=== PATIENT | male | born 1965 | race Caucasian/White ===

== ENCOUNTER 2021-05-20 11:48 | Outpatient (CLI) | payer OTHER, SELFPAY ==
--- NOTE | 2021-05-20 11:55 | CT_ITS ---
WS: [id number] CT CHEST ANGIOGRAPHY WITH REFORMATS HISTORY: SHORTNESS OF BREATH, HISTORY OF COVID, POSITIVE D-DIMER TECHNIQUE: Contiguous axial images are obtained through the chest during arterial injection of intrav enous contrast. Images are reconstructed to evaluate the pulmonary arteries. MIP imaging also reviewe d. All CT scans at [facility] use at least one of these dose optimization techniques: automat ed exposure control; mA and/or kV adjustment per patient size (includes targeted exams where dose is matched to clinical indication); or iterative reconstruction. CONTRAST: Omnipaque 300; 150 mL IV. DLP: 1455.32 mGycm COMPARISON: None available. Adequate opacification of pulmonary arteries through the segmental branches. Beyond the segmental bra nches the opacification is very limited. Pulmonary artery size is normal. No filling defects. Normal aorta. No pericardial or pleural effusions. No RIGHT heart strain. Bilateral, multilobar patchy opacifications and groundglass consolidations. Typical for pneumonitis a ssociated with Covid 19. No dense areas of consolidation. No pneumothorax. Periaortic and paratrachea l lymph nodes appear reactive. No significantly enlarged lymph nodes. There is a subcarinal lymph nod e measuring up to 11 mm. Small hiatal hernia. Long-term stability of an 18 mm LEFT adrenal nodule consistent with an adenoma. Sclerotic focus in T6 is probably a bone island. CT/CT angio chest PE protcl [id number] IMPRESSION: 1. No pulmonary embolism to the segmental branches. 2. Multi lobar patchy groundglass opacifications. Typical for Covid 19 pneumon ia. 3. Mildly reactive mediastinal and subcarinal adenopathy. 4. Stable LEFT adrenal gland nodule which is likely an adenoma.
[2021-05-20] MEDS: iohexol 350 mg/mL 100 mL Btl IV (12:17)
== END 2021-05-20 11:49 | disposition home or self-care (01) ==
LOC: RADWPI 11:53
PROVIDERS: PCP Physician Assistant Medical; Visit Provider Physician Assistant Medical
DX: R06.02 Shortness of breath (principal); Z86.16 Personal history of COVID-19; R07.9 Chest pain, unspecified; R79.1 Abnormal coagulation profile; D49.7 Neoplasm of unspecified behavior of endocrine glands and other parts of nervous system
CPT/HCPCS: 71275; Q9967

== ENCOUNTER → 2022-02-09 18:20 | Outpatient (BNVA) | payer OTHER, SELFPAY | PROVIDERS: Visit Provider Registered Nurse Neonatal Intensive Care | DX: M25.512 Pain in left shoulder (principal) | CPT/HCPCS: 73030 ==

== ENCOUNTER → 2022-08-25 08:45 | Outpatient (BNVA) | payer OTHER, SELFPAY | PROVIDERS: Visit Provider Nurse Practitioner | DX: Z00.00 Encounter for general adult medical examination without abnormal findings (principal); I10 Essential (primary) hypertension | CPT/HCPCS: 80053; 80061; 84443; 85025; G0103 ==

== ENCOUNTER → 2023-07-13 08:44 | Outpatient (BNVA) | payer OTHER, SELFPAY | PROVIDERS: PCP Nurse Practitioner Family; Visit Provider Nurse Practitioner Family | DX: I10 Essential (primary) hypertension (principal); E55.9 Vitamin D deficiency, unspecified; Z79.899 Other long term (current) drug therapy; Z13.6 Encounter for screening for cardiovascular disorders; Z12.5 Encounter for screening for malignant neoplasm of prostate; I49.9 Cardiac arrhythmia, unspecified; G47.00 Insomnia, unspecified | CPT/HCPCS: 80053; 80061; 81003; 82306; 83036; 84443; 85025; G0103 ==

== ENCOUNTER → 2023-07-20 08:42 | Outpatient (BNVA) | payer OTHER, SELFPAY | PROVIDERS: PCP Nurse Practitioner Family; Visit Provider Nurse Practitioner Family | DX: R31.9 Hematuria, unspecified (principal) | CPT/HCPCS: 81003; 87086 ==

== ENCOUNTER → 2023-08-02 08:29 | Outpatient (BNVA) | payer OTHER, SELFPAY | PROVIDERS: PCP Nurse Practitioner Family; Visit Provider Nurse Practitioner Family | DX: N20.0 Calculus of kidney (principal) | CPT/HCPCS: 81003; 87086 ==

== ENCOUNTER 2024-03-30 11:21 | Observation (INO) | payer OTHER, SELFPAY ==
[2024-03-30] VITALS (9 sets, daily range): BP systolic 118–146; BP diastolic 65–78; PULSE 82–101; RESP 17–19; TEMP 36.8–39.2; O2SAT 95–100; BMI 36.9; BMI 38.1
--- NOTE | 2024-03-30 12:00 | XRR_ITS ---
PROCEDURE INFORMATION: Exam: XR Chest Exam date and time: 03/30/2024 12:30 PM Age: 58 years old Clinical indication: Patient HX: Weakness; Fever; Recent spider bite with antibiotics but no improvement TECHNIQUE: Imaging protocol: Radiologic exam of the chest. Views: 1 view. COMPARISON: CT angio chest PE protcl [id number] 05/20/2021 12:06 PM FINDINGS: Lungs: Unremarkable. No consolidation. Pleural spaces: Unremarkable. No pleural effusion. No pneumothorax. Heart/Mediastinum: Unremarkable. No cardiomegaly. Bones/joints: Unremarkable. XR/XR chest 1V portable [id number] IMPRESSION: No acute findings.
--- NOTE | 2024-03-30 12:04 | ECG_ITS ---
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 Measurements Intervals [place] Rate: 100 P: 18 NE: 137 QRS: -12 QRSD: 98 T: 16 QT: 306 QTc: 395 Interpretive Statements SINUS TACHYCARDIA ABNORMAL RHYTHM ECG No previous ECG available for comparison Electronically Signed On 03-31-2024 7:08:14 CDT by Kodi Daniels M.D. [id number]
[2024-03-30] MEDS: sodium chloride 0.9% 1,000 ML 999 ML IV ×2 (12:22→13:29)
--- NOTE | 2024-03-30 12:25 | ED_ITS ---
HPI - Weakness 2 General: Chief complaint: Weakness Stated complaint: urg care referral, fever, weakness Time Seen by Provider: 03/30/24 11:26 History of Present Illness: 58-year-old male presents to the emergen cy department chief complaint of fever that started last night patient recently was treated for a rash she sustained to the left lower abdomen has been spreading to his left chest he was seen in outside urgent care last week was started on Bactrim for it. Patient presented back into the urgent care as he felt like he is going to pass out he patient does endorse having appetite reduction reporting no chest pain or palpitations or abdominal pain. Patient presented to the ER per urgent care physician's request for further evaluation management potential sepsis were versus underlying cardiac issue versus other. Associated symptoms: Reports chills and fever(s); Denies chest pain, headache(s), nausea or vomiting Review of Systems 2 General: Reports: 10 or more systems reviewed and unremarkable except in HPI and below Const: Reports: fever(s), chills, change in appetite, fatigue and malaise Eyes: Denies: change in vision or blurry vision Card: Denies: chest pain or palpitations Resp: Denies: dyspnea or productive cough GI: Denies: abdominal pain, nausea or vomiting : Denies: flank pain Musc: Denies: extremity pain or extremity swelling Skin/Breast: Reports: rash and skin tenderness; Denies: pruritus Neuro: Denies: headache(s) Psych: Denies: anxiety or depression Chas/Lymph: Denies: easy bleeding All/Imm: Denies: urticaria, throat swelling or facial swelling PFSH ED 2 PFSH: Medical History Urinary tract infection Renal stone Hematuria Insomnia Vitamin D deficiency Primary hypertension Medication management Encounter for screening for cardiovascular disorders Prostate cancer screening Colon cancer screening Cardiac arrhythmia Family History (Updated 03/30/24 @ 16:45 by Arcenio Art MD) Father CAD (coronary artery disease) Mother CAD (coronary artery disease) Social History Smoking and tobacco/nicotine status: unknown if used tobacco/nicotine Physical Exam 2 Narrative: EXAM NARRATIVE: Patient patient peers nontoxic on exam diaphoretic however is slightly elevated in the low 100 appears to be sinus rhythm. Const: COMMON NORMALS: no acute distress, patient oriented x3 and healthy appearing HENMT: COMMON NORMALS: normocephalic and atraumatic HEAD & SCALP: n ormocephalic and atraumatic Eye: COMMON NORMALS: Equal, round and reactive pupils present and EOMs intact bilaterally PUPIL: Yes Equal, round and reactive pupils present Neck/C-Spine: COMMON NORMALS: full ROM, supple and no JVD Lymph: LYMPHATIC: no lymphadenopathy noted Chest: COMMONS NORMALS: normal inspection of the chest and normal palpation of entire chest wall Resp: COMMON NORMALS: normal respiratory effort, No retractions and clear to auscultation bilaterally EFFORT & INSPECTION: Yes able to speak in complete sentences and Yes symmetric chest movement AUSCULTATION: clear to auscultation bilaterally Cardio: COMMON NORMALS: no JVD, regular rate and regular rhythm RATE: r egular rate RHYTHM: regular rhythm GI: COMMON NORMALS: Normal to inspection, nondistended, normoactive bowel sounds present, Soft to palpation and non-tender INSPECTION: Yes normal to inspection PALPATION: Yes Soft to palpation : COMMON NORMALS: Yes no CVA tenderness BLADDER/KIDNEY EXAM: Yes no CVA tenderness Back/Pelvis: COMMON NORMALS: no CVA tenderness Extremity: COMMON NORMALS: normal to inspection and full ROM Neuro: COMMON NORMALS: patient oriented x3, CN's II-XII intact bilaterally, moves all extremities and no focal motor deficits Psych: COMMON NORMALS: mental status grossly normal, Normal thought process present, cooperative and normal affect THOUGHT PROCESS: Normal thought process present Skin: COMMON NORMALS: negative for no rashes or lesions noted (Nonspecific rash appreciated to the left lateral abdominal wall extending i) GENERAL SKIN EXAM: rashes and/or lesions noted (Nonspecific rash appreciated to the left lateral abdominal wall extending i) Course 2 Vital Signs: Vital signs: Vital Signs Temperature 98.2 F 03/30/24 11:46 Pulse Rate 89 03/30/24 17:15 Respiratory Rate 18 03/30/24 11:46 Blood Pressure 134/78 03/30/24 11:46 Pulse Oximetry 96 03/30/24 17:15 Oxygen Delivery Me thod Room Air 03/30/24 17:15 MDM - Weakness Medical Decision Making Due to patient's symptoms and condition IV established sepsis protocol was maintained as well as basic cardiac will continue to follow. The presumed cellulitis located to left lateral abdomen appears to be improved from previous imaging I do not believe this is the main source of patient's fever or concern will do a additional cardiac workup due to the near passing out episode the patient had prior to arrival as well as his significant family history, upon direct questioning patient does not endorse having any shortness of breath chest pain or productive cough. Lab work looks conflicting patient does have a significant lactic acidosis that has minimally improved with IV fluids but not to the extent that I expect patient does have anion gap and low CO2 level which I Think may be contributed to may be medication induced or even possibly underlying sepsis looking at the patient's cellulitis in the abdominal wall I do not believe is contributory to this current findings especially the patient's white blood cell count is unremarkable due to the extent the patient's lab abnormalities I did offer the patient observation status overnight in which the patient has agreed. Discussed patient's case With Dr. Art hospitalist that has granted acceptance for additional monitoring and fluids. Lab Data 03/30/24 12:20 03/30/24 12:59 Radiology Impressions Chest X-Ray 03/30/24 12:00 IMPRESSION: No acute findings. Abdomen/Pelvis CT 03/30/24 14:19 IMPRESSION: 1. Nonobstructing renal calculi 2. New 4 cm probable right peripelvic cyst. 3. Slightly enlarging currently 2.5 cm well-circumscribed left adrenal nodule. COMMENTS: Consistent with the [place] [employer]'s Incidental Findings Committee white paper (J Am Dequan Radiol 2018): Any incidental renal lesion less than 1 cm or classified as too small to characterize, or any incidental cystic renal lesion characterized as simple-appearing, is likely benign. No follow-up imaging is recommended for these lesions per consensus recommendations based on imaging criteria. Laboratory Results WBC 6.12 10^3/uL (3.29-11.43) 03/30/24 12:20 RBC 5.49 10^6/uL (3.85-5.65) 03/30/24 12:20 Hgb 15.50 g/dL (11.27-16.99) 03/30/24 12:20 Hct 47.3 % (37-53) 03/30/24 12:20 MCV 86.2 fl (82-101) 03/30/24 12:20 MCH 28.2 pg (27-33) 03/30/24 12:20 MCHC 32.8 g/dL (30-55) 03/30/24 12:20 RDW 13.6 % (12.1-15.1) 03/30/24 12:20 Plt Count 141 10^3/cmm (157-399) L 03/30/24 12:20 MPV 9.5 fL (7.4-10.4) 03/30/24 12:20 Neut % (Auto) 90.5 % 03/30/24 12:20 Lymph % (Auto) 6.4 % 03/30/24 12:20 [place] % (Auto) 2.5 % 03/30/24 12:20 Eos % (Auto) 0.0 % 03/30/24 12:20 Baso % (Auto) 0.3 % 03/30/24 12:20 Neut # (Auto) 5.54 10^3/uL (1.8-7.7) 03/30/24 12:20 Lymph # (Auto) 0.4 10^3/uL (0.8-4.8) L 03/30/24 12:20 [place] # (Auto) 0.2 10^3/uL (0.2-0.9) 03/30/24 12:20 Eos # (Auto) 0.0 10^3/uL (0.0-0.8) 03/30/24 12:20 Baso # (Auto) 0.0 10^3/uL (0.0-0.1) 03/30/24 12:20 Nucleated RBC % (auto) 0 % 03/30/24 12:20 Nucleated RBCs # 0.0 /100WBC 03/30/24 12:20 ESR 16 mm/hr (0-10) H 03/30/24 12:20 Sodium 135 mmol/L (136-145) L 03/30/24 12:59 Potassium 4.0 mmol/L (3.5-5.1) 03/30/24 12:59 Chloride 104 mmol/L (98-107) 03/30/24 12:59 Carbon Dioxide 17 mmol/L (22-29) L 03/30/24 12:59 Anion Gap 18.0 (5-19) 03/30/24 12:59 BUN 16 mg/dL (6-20) 03/30/24 12:59 Creatinine 1.5 mg/dL (0.7-1.2) H 03/30/24 12:59 GFR Calculation 48.2 mL/min (90-130) L 03/30/24 12:59 Glucose 160 mg/dL (65-115) H 03/30/24 12:59 POC Glucose 164 mg/dL (70-110) H 03/30/24 12:55 Calculated Osmolality 285 mOsm/kg (285-295) 03/30/24 12:59 Lactic Acid 3.3 mmol/L (0.5-2.2) H 03/30/24 12:20 Lactic Acid (Sepsis) 2.6 mmol/L (0.5-2.2) H 03/30/24 14:53 Calcium 8.1 mg/dL (8.5-10.5) L 03/30/24 12:59 Magnesium 1.9 mg/dL (1.7-2.3) 03/30/24 12:59 Total Bilirubin 0.5 mg/dL (0.15-1.2) 03/30/24 12:59 AST 33 U/L (0-40) 03/30/24 12:59 ALT 45 U/L (0-41) H 03/30/24 12:59 Alkaline Phosphatase 102 U/L (40-130) 03/30/24 12:59 Creatine Kinase 95 U/L (39-308) 03/30/24 12:59 Troponin T Baseline 10 ng/L (0-15) 03/30/24 12:59 Troponin T 120 Minute 10.00 ng/L (0-15) 03/30/24 14:53 Delta Troponin T 0 ABS# (0-10) 03/30/24 14:53 C-Reactive Protein 142.2 mg/L (0.0-4.9) H 03/30/24 12:59 NT-Pro-B Natriuret Pep 50 pg/mL (0-125) 03/30/24 12:59 Total Protein 6.3 g/dL (6.6-8.7) L 03/30/24 12:59 Albumin 3.9 g/dL (3.5-5.2) 03/30/24 12:59 Globulin 2.4 g/dL (1.3-4.6) 03/30/24 12:59 Urine Color Yellow (Yellow) 03/30/24 12:41 Urine Appearance Clear (CLEAR) 03/30/24 12:41 Urine pH 5 (5-7) 03/30/24 12:41 Ur Specific [place] 1.020 (1.005-1.030) 03/30/24 12:41 Urine Protein Trace (Negative) 03/30/24 12:41 Urine Glucose (UA) Trace (Normal) H 03/30/24 12:41 Urine Ketones Negative (Negative) 03/30/24 12:41 Urine Blood 2+ (Negative) H 03/30/24 12:41 Urine Nitrate Negative (Negative) 03/30/24 12:41 Urine Bilirubin Neg (Negative) 03/30/24 12:41 Urine Urobilinogen 4 mg/dL (Negative) H 03/30/24 12:41 Ur Leukocyte Esterase Trace (Negative) H 03/30/24 12:41 Urine RBC 5-10 /hpf (0-2) H 03/30/24 12:41 Urine WBC 5-10 /hpf (0-5) H 03/30/24 12:41 Ur Squamous Epith Cells None /hpf (0-5) 03/30/24 12:41 Ur Transition Epith Cell Rare /hpf 03/30/24 12:41 Amorphous Sediment Not Reportable 03/30/24 12:41 Urine Bacteria 1+ /hpf (NONE) H 03/30/24 12:41 Urine Mucus Trace /hpf 03/30/24 12:41 All radiology interpretation(s) finalized by discharge Discharge Plan Discharge Patient Disposition: Admitted As Inpatient Clinical Impression: Syncope and collapse, Lactic acidosis Condition: Stable Coding Level of Care Code ED [employer] Sitter for Sixto Freeman
[2024-03-30 12:38] LABS: Basophils % 0.3 %; Hematocrit 47.3 % (37-53); Lymphocytes # 0.4 10^3/uL (0.8-4.8); Lymphocytes % 6.4 %; Mean Corpuscular HGB Conc 32.8 g/dL (30-55); Mean Corpuscular Hemoglobin 28.2 pg (27-33); Mean Corpuscular Volume 86.2 fl (82-101); Mean Platelet Volume 9.5 fL (7.4-10.4); Monocytes # 0.2 10^3/uL (0.2-0.9); Monocytes % 2.5 %; Neutrophils # 5.54 10^3/uL (1.8-7.7); Neutrophils % 90.5 %; Nucleated Red Blood Cells % 0 %; Platelet Count 141 10^3/cmm (157-399); Red Blood Count 5.49 10^6/uL (3.85-5.65); Red Cell Distribution Width 13.6 % (12.1-15.1); White Blood Count 6.12 10^3/uL (3.29-11.43)
[2024-03-30 12:52] LABS: Lactic Sepsis W/Reflex 3.3 mmol/L (0.5-2.2)
[2024-03-30 12:59] LABS: Glucose Point of Care 164 mg/dL (70-110)
[2024-03-30 13:21] LABS: Bilirubin Urine Neg (Negative); Blood Urine 2+ (Negative); Glucose Urine UA Trace (Normal); Ketones Urine Negative (Negative); Leukocyte Esterase Urine Trace (Negative); Nitrate Urine Negative (Negative); Protein Urine Trace (Negative); Urine Appearance Clear (CLEAR); Urine Color Yellow (Yellow); Urobilinogen Urine 4 mg/dL (Negative); pH Urine 5 (5-7)
[2024-03-30 13:22] LABS: Add Urine Culture? No; Add Urine Microscopic? YES; Bacteria Urine 1+ /hpf; Mucus Urine TRACE /hpf; Transitional Epi Cells Urine RARE /hpf
[2024-03-30 13:23] LABS: Troponin(5th) Baseline 10 ng/L (0-15)
[2024-03-30 13:32] LABS: Alanine Aminotransferase 45 U/L (0-41); Albumin Level 3.9 g/dL (3.5-5.2); Alkaline Phosphatase 102 U/L (40-130); Aspartate Amino Transferase 33 U/L (0-40); Blood Urea Nitrogen 16 mg/dL (6-20); C Reactive Protein 142.2 mg/L (0.0-4.9); Calcium 8.1 mg/dL (8.5-10.5); Carbon Dioxide 17 mmol/L (22-29); Chloride 104 mmol/L (98-107); Globulin 2.4 g/dL (1.3-4.6); Glomerular Filtration Rate 48.2 mL/min (90-130); Glucose 160 mg/dL (65-115); NT Pro B Type Natriuretic Pept 50 pg/mL (0-125); Osmolality Calculated 285 mOsm/kg (285-295); Sodium 135 mmol/L (136-145); Total Bilirubin 0.5 mg/dL (0.15-1.2); Total Protein 6.3 g/dL (6.6-8.7)
[2024-03-30 13:40] LABS: Creatinine Clr Calc Pharmacy 67.4599
--- NOTE | 2024-03-30 14:19 | CTR_ITS ---
PROCEDURE INFORMATION: Exam: CT Abdomen And Pelvis With Contrast Exam date and time: 03/30/2024 2:35 PM Age: 58 years old Clinical indication: Abnormal findings; Abnormal lab test; Elevated liver enzymes; Patient HX: PT states he had a spider bite last week, but at urgent care they told him it was a blood infection. PT states he is weak and has been running a fever for the last couple days. PT denies sick contacts. PT has been taking abx for an infection prescribed at urgent care. PT denies pain but states 'queazy and weak'. states that PT fell in urgent care parking lot but did not hit head. PT states he was light headed causing the fall. ; Additional info: Elevated enzymes, discomfort. TECHNIQUE: Imaging protocol: Computed tomography of the abdomen and pelvis with contrast. Radiation optimization: All CT scans at this facility use at least one of these dose optimization techniques: automated exposure control; mA and/or kV adjustment per patient size (includes targeted exams where dose is matched to clinical indication); or iterative reconstruction. Contrast material: OMNI 350; Contrast volume: 100 ml; Contrast route: INTRAVENOUS (IV); COMPARISON: CT abdomen pelvis w con* [id number] 05/07/2017 9:56 PM RADIATION DOSE METRICS: Total DLP (mGy-cm): 1087.69 FINDINGS: Diaphragm: Hiatal hernia. Liver: Mild hepatic steatosis. Gallbladder and biliary ducts: Normal. No calcified stones. No ductal dilation. Pancreas: Normal. No ductal dilation. Spleen: Normal. No splenomegaly. Adrenal glands: Slightly enlarging currently 2.5 cm left adrenal nodule. This had previously measured 19 mm. This is probably benign. Kidneys and ureters: Bilateral renal cysts. There is a 4 cm fluid density structure in the right peripelvic region which was not present previously. This could represent a peripelvic cysts which has developed since 2017 or represent a focally dilated upper pole calyx. Based on appearance I favor a newly developed cyst. Nonobstructing renal calculi on each side. Stomach and bowel: Unremarkable. No obstruction. No mucosal thickening. Appendix: No evidence of appendicitis. Intraperitoneal space: Unremarkable. No free air. No significant fluid collection. Vasculature: Unremarkable. No abdominal aortic aneurysm. Lymph nodes: Unremarkable. No enlarged lymph nodes. Urinary bladder: Unremarkable as visualized. Reproductive: Unremarkable as visualized. Bones/joints: Unremarkable. No acute fracture. Soft tissues: Unremarkable. CT/CT abdomen pelvis w con* [id number] IMPRESSION: 1. Nonobstructing renal calculi 2. New 4 cm probable right peripelvic cyst. 3. Slightly enlarging currently 2.5 cm well-circumscribed left adrenal nodule. COMMENTS: Consistent with the [place] [employer]'s Incidental Findings Committee white paper (J Am Dequan Radiol 2018): Any incidental renal lesion less than 1 cm or classified as too small to characterize, or any incidental cystic renal lesion characterized as simple-appearing, is likely benign. No follow-up imaging is recommended for these lesions per consensus recommendations based on imaging criteria.
[2024-03-30 14:20] LABS: Reflex Lactate Order REFLEX LACTIC ORDERD
[2024-03-30] MEDS: iohexol 350 mg/mL 500 mL Btl (per mL) IV (14:40)
[2024-03-30 15:18] LABS: Lactic Acid level (Lactate) 2.6 mmol/L (0.5-2.2)
[2024-03-30 15:19] LABS: Troponin 5 2HR Delta 0 ABS# (0-10)
--- NOTE | 2024-03-30 16:34 | USCV_ITS ---
JoshDevyn keith Age: 58 Gender: M : 1965 Exam Date: 03/30/2024 18:24 Ordering Phys: Arcenio Art MD Technologist: Derrek Og Exam Location: [facility] [place] Indication: syncope BP: 118 / 72 HR: 83 Rhythm: Sinus Technical Quality: Adequate MEASUREMENTS (Male / Female) Normal Values 2D ECHO LV Diastolic Diameter PLAX 4.3 cm 4.2 - 5.9 / 3.9 - 5.3 cm IVS Diastolic Thickness 1.1 cm 0.6 - 1.0 / 0.6 - 0.9 cm IVS Systolic Thickness 1.7 cm LVPW Diastolic Thickness 1.3 cm 0.6 - 1.0 / 0.6 - 0.9 cm LVPW Systolic Thickness 1.9 cm LVOT Diameter 2.1 cm LV Ejection Fraction 2D Teich 65.4 % LV Ejection Fraction MOD 4C 63.8 % LV Ejection Fraction MOD 2C 58.8 % LV Ejection Fraction 2C AL 57.7 % LA Diameter 3.5 cm RA Systolic Volume 4C AL 34.0 ml RA Systolic Volume 4C MOD 34.9 ml LA Sys Volume AL 56.7 cm cubed LA Sys Volume Index AL 23.7 cm cubed/m squared Aorta at Sinotubular Diameter 2.5 cm IVC Diameter 1.7 cm M-MODE LA Ao Ratio MM 1.1 MV E Point Septal Separation 1.6 cm AV Cusp Separation MM 1.6 cm DOPPLER AV Peak Velocity 181.0 cm/s LVOT Peak Velocity 108.0 cm/s AV Area Cont Eq vti 2.5 cm squared AV Area Cont Eq pk 2.1 cm squared MV Peak Velocity 100.0 cm/s MV Area PHT 7.2 cm squared Mitral E to A Ratio 1.1 TV Peak Velocity 182.0 cm/s TR Peak Velocity 193.0 cm/s TR Peak Gradient 14.9 mmHg TR Mean Velocity 153.0 cm/s TR Mean Gradient 9.7 mmHg TR Velocity Time Integral 39.4 cm PV Peak Velocity 133.7 cm/s RV Ejection Time 0.2 s FINDINGS Left Ventricle Normal left ventricular size, systolic function and wall thickness, with no regional wall motion abnormalities. Normal left ventricular wall thickness. Normal diastolic filling pattern. Left ventricular ejection fraction is estimated at 65 %. Right Ventricle The right ventricle is normal in size and function. Right Atrium The right atrium is normal in size. Left Atrium The left atrium is normal in size. Mitral Valve Structurally normal mitral valve without significant stenosis or prolapse. There is no mitral regurgitation. Aortic Valve Structurally normal aortic valve without significant sclerosis or stenosis. There is no aortic regurgitation. Tricuspid Valve Structurally normal tricuspid valve without significant stenosis or regurgitation. Pulmonary artery systolic pressure is normal. Pulmonic Valve Structurally normal pulmonic valve without significant stenosis. There is no pulmonic regurgitation. Pericardium Normal pericardium without effusion. Aorta Normal ascending aorta dimension. IVC The inferior vena cava appears normal. CONCLUSIONS Normal transthoracic echocardiogram. There are no prior echocardiogram studies to compare. Dr. Kodi Daniels MD (Electronically Signed) Final Date: 31 March 2024 07:05 S
--- NOTE | 2024-03-30 16:41 | USR_ITS ---
PROCEDURE INFORMATION: Exam: US Retroperitoneal; Complete; Kidneys and Bladder Exam date and time: 03/30/2024 6:50 PM Age: 58 years old Clinical indication: Abnormal findings; Abnormal radiologic finding of the abdomen; Radiologic exam and body structure: CT; Additional info: Peripelvic cyst vs abscess TECHNIQUE: Imaging protocol: Real-time ultrasound of the retroperitoneum with image documentation. Complete exam focused on the kidneys and bladder. COMPARISON: CT abdomen pelvis w con* [id number] 03/30/2024 2:35 PM FINDINGS: Right kidney: Multiple simple cysts in the right kidney, the largest measures up to 3.2 cm. Right upper pole cyst could represent focally dilated calyx. Right kidney measures 10.8 cm in length. Left kidney: The left kidney measures 11.5 cm in length. Urinary bladder: The bladder is unremarkable. Other findings: Bilateral renal calcifications are not documented on ultrasound. US/US renal BI* [id number] IMPRESSION: 1. Right upper pole cyst could represent focally dilated calyx. 2. Bilateral renal calcification seen on CT are not well seen on ultrasound.
--- NOTE | 2024-03-30 16:42 | P.HP_ITS ---
Providers/Chief Complaint 2 Primary Care Provider: WARD Calle Chief Complaint: urg care referral, fever, weakness, poss. septic History of Present Illness Devyn Nash is a 58 year old male with a past medical history of UTI, hypertension, history of nephrolithiasis, who presents to [facility] due to fatigue, malaise, fevers, chills, syncopal episode. Patient tells me that roughly about a week ago he started developing a rash on his left lower abdomen extending to the left flank, with a central induration, he thought it was a bug bite, he went to urgent care was prescribed Bactrim, he has been taking Bactrim for the last week. He tells me that over the week EKG to have fatigue, malaise, intermittent fevers, chills, continues to feel unwell. Denies any cough, no shortness of breath, no nasal congestion, no sore throat, no trouble swallowing no diarrhea, no constipation, no new rashes, he tells me actually the rash over his left abdomen improved with the Bactrim. Denies any dysuria, no hematuria, no neck pain, no neck stiffness, no episodes of confusion. He denies any tick bite but is unsure that the rash she had if it was a bug bite or potentially a tick bite. He tells me that due to persistent fevers, chills, he presented to urgent care today when he walked into urgent care, he felt weak and lightheaded and that the last thing he remembered. According to family members, he passed out, they had to help him up to wheelchair, denies any preceding chest pain, no palpitations, no calf pain, no calf swelling, no hemoptysis. During my examination, patient sitting up in a chair, denies feeling lightheaded, no dizziness, no chest pain Review of Systems 2 Const: Reports: fever(s), chills, body aches, fatigue and malaise Card: Denies: chest pain Resp: Denies: dyspnea GI: Denies: abdominal pain, nausea, vomiting or diarrhea : Denies: flank pain, difficulty urinating or dysuria Skin/Breast: Reports: rash Medications/Allergies Home Medications Medication Instructions Recorded Confirmed Last Taken Type hydroxyzine HCl 25 mg tablet 25 mg PO .HS PRN nausea and 07/13/23 03/30/24 Unknown Rx vomiting 30 days #30 tabs lisinopril 10 mg tablet 10 mg PO DAILY #90 tabs 07/13/23 03/30/24 Unknown Rx tamsulosin 0.4 mg capsule (Flomax) 0.4 mg PO DAILY PRN renal stone 30 08/02/23 03/30/24 Unknown Rx days #30 caps sulfamethoxazole 800 1 tab PO BID 10 days #20 tabs 03/23/24 03/30/24 Unknown Rx mg-trimethoprim 160 mg tablet (Bactrim DS) Allergies Allergy/AdvReac Type Severity Reaction Status Date / Time No Known Allergies Allergy Verified 03/23/24 09:59 PFSH Acute 2 PFSH: Medical History Urinary tract infection Renal stone Hematuria Insomnia Vitamin D deficiency Primary hypertension Medication management Encounter for screening for cardiovascular disorders Prostate cancer screening Colon cancer screening Cardiac arrhythmia Family History (Updated 03/30/24 @ 16:45 by Arcenio Art MD) Father CAD (coronary artery disease) Mother CAD (coronary artery disease) Social History Smoking and tobacco/nicotine status: unknown if used tobacco/nicotine Vitals/I&O/Wt Last Vital Signs Temp 98.2 F 03/30/24 11:46 Pulse 99 03/30/24 15:09 Resp 18 03/30/24 11:46 BP 134/78 03/30/24 11:46 Pulse Ox 99 03/30/24 15:09 O2 Del Method Room Air 03/30/24 15:09 03/30/24 03/30/24 03/30/24 06:59 14:59 22:59 Intake Total 1000 / 1000 Balance 1000 / 1000 Weight last 48 hrs Weight 113.398 kg Physical Exam 2 Const: COMMON NORMALS: no acute distress and patient oriented x3 HENMT: COMMON NORMALS: normocephalic HEAD & SCALP: normocephalic Eye: COMMON NORMALS: Equal, round and reactive pupils present Neck/C-Spine: COMMON NORMALS: full ROM and no lymphadenopathy Resp: COMMON NORMALS: normal respiratory effort, No retractions, No use of accessory muscles and clear to auscultation bilaterally AUSCULTATION: clear to auscultation bilaterally Cardio: COMMON NORMALS: regular rate, regular rhythm, S1 normal heart sound present and S2 normal heart sound present RATE: regular rate RHYTHM: r egular rhythm HEART SOUNDS: S1 normal heart sound present and S2 normal heart sound present GI: COMMON NORMALS: Normal to inspection, nondistended, normoactive bowel sounds present, Soft to palpation and non-tender : COMMON NORMALS: Yes no CVA tenderness Extremity: COMMON NORMALS: no calf tenderness and no pedal edema Neuro: COMMON NORMALS: patient oriented x3, CN's II-XII intact bilaterally and moves all extremities Psych: COMMON NORMALS: mental status grossly normal Skin: NARRATIVE SKIN EXAM: #, Left lower abdomen left flank, measuring 10 x 10 cm irregular borders, poorly demarcated borders, no significant erythema, no tenderness Data 03/30/24 12:20 03/30/24 12:59 Micro: Microbiology 03/30/24 16:01 Blood Culture - Preliminary Blood SPECIMEN COLLECTED 03/30/24 15:58 Blood Culture - Preliminary Blood SPECIMEN COLLECTED A&P Assessment and plan (1) Syncope: (2) Fever: (3) Acute kidney injury: Plan Syncopal episode -Etiology unclear Cardiac echo Telemetry monitoring Serial EKGs, serial troponins Orthostatic vitals IV fluids Fevers ? Etiology potentially related to ciprofloxacin ? Does have thrombocytopenia, transaminitis, could be tickborne illness such as tularemia, [place] spotted fever ? Order tick panel, tularemia panel ? Follow blood cultures -Follow urine cultures -follow respiratory viral panel -vancomycin -ciprofloxacon -doxyycline ANGELIC Is potentially related to Bactrim IV fluids Elevated lactic acid -IV fluid UTI ? Continue ciprofloxacin Peripelvic cyst New 4 cm probable right peripelvic cyst. ? With evidence of UTI ? Will do renal ultrasound ? Continue to monitor inflammatory markers Slightly enlarging currently 2.5 cm well-circumscribed left adrenal nodule. ? Will need to follow-up with hematology oncology as outpatient fule code phill Attestations 2 Medical Necessity Statement*: Patient requires hospitalization fevers, angelic, uti, syncopal episode, peripelvic cyst Diagnoses Syncope R55 Fever R50.9 Acute kidney injury N17.9
[2024-03-30] MEDS: ciprofloxacin 400 MG/200 ML PREMIX 200 MG IV (16:58)
--- NOTE | 2024-03-30 17:02 | ECG_ITS ---
[facility] Test Date: 2024-03-30 Pat Name: Devyn Nash Department: Room: Gender: Male [employer]: : 1965 Requested By: Willard Kent Order Number: [id number] Jered MD: Kodi Daniels M.D. Measurements Intervals [place] Rate: 79 P: 27 NH: 138 QRS: -6 QRSD: 101 T: 18 QT: 330 QTc: 380 Interpretive Statements SINUS RHYTHM Compared to ECG 03/30/2024 12:12:14 Sinus tachycardia no longer present Electronically Signed On 03-31-2024 7:08:32 CDT by Kodi Daniels M.D. [id number]
[2024-03-30 17:09] LABS: Creatine Phosphokinase 95 U/L (39-308); Magnesium 1.9 mg/dL (1.7-2.3)
[2024-03-30 17:09] LABS: Erythrocyte Sedimentation Rate 16 mm/hr (0-10)
[2024-03-30 17:16] LABS: D Dimer 3.07 ug/mLFEU (0-0.59)
[2024-03-30] MEDS: pantoprazole 40 mg SDV IVP (18:08)
[2024-03-30] MEDS: enoxaparin 40 mg/0.4 mL Syringe SUBCUT (18:09)
[2024-03-30] MEDS: vancomycin 1,250 MG/250 ML PIGGYBACK 250 MG IV (18:11)
[2024-03-30 18:14] LABS: Chol HDL Ratio 4.81 mg/dL (1.0-5.00); Cholesterol 130 mg/dL (0-200); HDL Cholesterol 27 mg/dL (60-100); LDL Cholesterol Calculated 77 mg/dL (50-129); LDL HDL Ratio 2.85 RATIO (0.00-3.22); Triglycerides 130 mg/dL (0-150)
[2024-03-30] MEDS: sodium chloride 0.9% 1,000 ML 75 ML IV (18:30)
[2024-03-30 18:33] LABS: HIV 1 & 2 Antibody Non-Reactive (Non-Reactiv); HIV 1 & 2 Antigen Non-Reactive (Non-Reactiv)
[2024-03-30] MEDS: doxycycline 100 MG in sodium chloride 0.9% (plus) 100 ML IV (19:31)
[2024-03-30 19:36] LABS: Adenovirus Not Detected (NOT DETECT); Chlamydia Pneumoniae Not Detected (NOT DETECT); Coronavirus 229E,HKU1,NL63,OC4 Not Detected (NOT DETECT); Human Metapneumovirus Not Detected (NOT DETECT); Human Rhinovirus/Enterovirus Not Detected (NOT DETECT); Influenza A Not Detected (NOT DETECT); Influenza A H1 Not Detected (NOT DETECT); Influenza A H1-2009 Not Detected (NOT DETECT); Influenza A H3 Not Detected (NOT DETECT); Influenza B Not Detected (NOT DETECT); Mycoplasma Pneumoniae Not Detected (NOT DETECT); Parainfluenza Virus Type 1 Not Detected (NOT DETECT); Parainfluenza Virus Type 2 Not Detected (NOT DETECT); Parainfluenza Virus Type 3 Not Detected (NOT DETECT); Parainfluenza Virus Type 4 Not Detected (NOT DETECT); Respiratory Syncytial Virus A Not Detected (NOT DETECT); Respiratory Syncytial Virus B Not Detected (NOT DETECT); SARS-COV-2 Not Detected (NOT DETECT)
[2024-03-30] MEDS: acetaminophen 325 mg Tablet 650 MG PO (19:41)
[2024-03-30] MEDS: zolpidem 5 mg Tablet PO (21:11)
[2024-03-30 22:24] LABS: Estmated Average Glucose 128; Hemoglobin A1C 6.1 % (4.0-6.0)
[2024-03-30 23:28] LABS: Hepatitis A Antibody IgM Non-Reactive (Nonreactive); Hepatitis B Core IgM Non-Reactive (Nonreactive); Hepatitis B Surface Antigen Non-Reactive (Nonreactive); Hepatitis C Virus Antibody Non-Reactive (Nonreactive)
[2024-03-31 04:00] VITALS: BP 102/50; PULSE 77; RESP 17; TEMP 36.8; O2SAT 96
[2024-03-31 04:05] LABS: Basophils % 0.6 %; Eosinophils % 0.3 %; Hematocrit 39.8 % (37-53); Lymphocytes # 0.6 10^3/uL (0.8-4.8); Mean Corpuscular HGB Conc 32.7 g/dL (30-55); Mean Corpuscular Hemoglobin 28.6 pg (27-33); Mean Corpuscular Volume 87.7 fl (82-101); Mean Platelet Volume 11.2 fL (7.4-10.4); Monocytes # 0.2 10^3/uL (0.2-0.9); Monocytes % 4.5 %; Neutrophils # 2.49 10^3/uL (1.8-7.7); Neutrophils % 75.3 %; Nucleated Red Blood Cells % 0 %; Platelet Count 166 10^3/cmm (157-399); Red Blood Count 4.54 10^6/uL (3.85-5.65); Red Cell Distribution Width 13.9 % (12.1-15.1); White Blood Count 3.31 10^3/uL (3.29-11.43)
[2024-03-31] MEDS: ciprofloxacin 400 MG/200 ML PREMIX 200 MG IV ×2 (04:09→16:48)
[2024-03-31 04:21] LABS: Lactic Sepsis W/Reflex 1.2 mmol/L (0.5-2.2)
[2024-03-31 04:24] LABS: Alanine Aminotransferase 31 U/L (0-41); Albumin Level 3.2 g/dL (3.5-5.2); Alkaline Phosphatase 78 U/L (40-130); Blood Urea Nitrogen 14 mg/dL (6-20); Calcium 7.8 mg/dL (8.5-10.5); Carbon Dioxide 18 mmol/L (22-29); Chloride 108 mmol/L (98-107); Creatinine Clr Calc Pharmacy 79.1579; Globulin 2.4 g/dL (1.3-4.6); Glomerular Filtration Rate 56.9 mL/min (90-130); Glucose 128 mg/dL (65-115); Osmolality Calculated 286 mOsm/kg (285-295); Sodium 137 mmol/L (136-145); Total Bilirubin 0.4 mg/dL (0.15-1.2); Total Protein 5.6 g/dL (6.6-8.7)
[2024-03-31 04:26] LABS: Anion Gap 14.6 (5-19); Aspartate Amino Transferase 38 U/L (0-40); Potassium 3.6 mmol/L (3.5-5.1)
[2024-03-31 05:32] VITALS: PULSE 71
[2024-03-31] MEDS: doxycycline 100 MG in sodium chloride 0.9% (plus) 100 ML IV (06:18)
[2024-03-31 07:21] VITALS: BP 148/75; PULSE 86; RESP 18; TEMP 36.9; O2SAT 96
--- NOTE | 2024-03-31 08:47 | CTR_ITS ---
PROCEDURE INFORMATION: Exam: CTA Chest With Contrast Exam date and time: 03/31/2024 9:26 AM Age: 58 years old Clinical indication: Abnormal findings; Abnormal diagnostic tests; Elevated d-dimer; Additional info: D dimer, SOB, TECHNIQUE: Imaging protocol: Computed tomographic angiography of the chest with contrast. Exam focused on the arteries. 3D rendering (Not supervised by radiologist): MIP and/or 3D reconstructed images were created by the technologist. Radiation optimization: All CT scans at this facility use at least one of these dose optimization techniques: automated exposure control; mA and/or kV adjustment per patient size (includes targeted exams where dose is matched to clinical indication); or iterative reconstruction. Contrast material: OMNI 350; Contrast volume: 76 ml; Contrast route: INTRAVENOUS (IV); COMPARISON: CT angio chest PE protcl [id number] 05/20/2021 12:06 PM RADIATION DOSE METRICS: Total DLP (mGy-cm): 481.71 FINDINGS: Pulmonary arteries: Normal. No pulmonary emboli. Aorta: Unremarkable. No aortic aneurysm. No aortic dissection. Lungs: Patchy atelectasis involves both lung bases posteriorly. No lung mass or infiltrate noted. Pleural spaces: Unremarkable. No pneumothorax. No pleural effusion. Heart: Mild cardiomegaly is noted. Lymph nodes: Unremarkable. No enlarged lymph nodes. Diaphragm: A hiatal hernia is noted in the lower mediastinum. Adrenal glands: There is a 3 cm diameter left adrenal adenoma. Bones/joints: Unremarkable. No acute fracture. Soft tissues: Unremarkable. CT/CT angio chest PE protcl [id number] IMPRESSION: 1. Mild bibasilar atelectasis 2. Stable cardiomegaly 3. Hiatal hernia 4. Stable 3 cm left adrenal adenoma
[2024-03-31] MEDS: iohexol 350 mg/mL 500 mL Btl (per mL) IV (09:27)
[2024-03-31] MEDS: vancomycin 1,250 MG/250 ML PIGGYBACK 250 MG IV (11:11)
[2024-03-31] MEDS: sodium chloride 0.9% 1,000 ML 75 ML IV (11:17)
[2024-03-31 11:53] VITALS: BP 130/72; PULSE 82; RESP 18; TEMP 37; O2SAT 97
--- NOTE | 2024-03-31 13:52 | P.PN_ITS ---
Subjective 2 Subjective: Patient was seen this morning, does report fevers overnight Tmax 102.6, fatigue, malaise, no nausea, no vomiting, Vitals/I&O/Wt Last Vital Signs Temp 98.6 F 03/31/24 11:53 Pulse 82 03/31/24 11:53 Resp 18 03/31/24 11:53 BP 130/72 03/31/24 11:53 Pulse Ox 97 03/31/24 11:53 O2 Del Method Room Air 03/31/24 11:53 03/30/24 03/31/24 03/31/24 22:59 06:59 14:59 Intake Total 1631.25 / 2631.25 1056.25 / 3687.50 950 / 950 Balance 1631.25 / 2631.25 1056.25 / 3687.50 950 / 950 Weight last 48 hrs Weight 117.617 kg Weight 117.118 kg Weight 113.398 kg Physical Exam 2 Const: COMMON NORMALS: no acute distress and patient oriented x3 Neck/C-Spine: COMMON NORMALS: no JVD Resp: COMMON NORMALS: normal respiratory effort, No retractions, No use of accessory muscles and clear to auscultation bilaterally AUSCULTATION: clear to auscultation bilaterally Cardio: COMMON NORMALS: no JVD, regular rate, regular rhythm, S1 normal heart sound present and S2 normal heart sound present RATE: regular rate RHYTHM: regular rhythm HEART SOUNDS: S1 normal heart sound present and S2 normal heart sound present GI: COMMON NORMALS: Normal to inspection, nondistended, normoactive bowel sounds present and non-tender Extremity: COMMON NORMALS: no pedal edema Neuro: COMMON NORMALS: patient oriented x3 Psych: COMMON NORMALS: mental status grossly normal Data 03/31/24 03:15 03/31/24 03:15 Micro: Microbiology 03/30/24 16:01 Blood Culture - Preliminary Blood SPECIMEN COLLECTED 03/30/24 15:58 Blood Culture - Preliminary Blood SPECIMEN COLLECTED A&P Assessment and plan (1) Syncope: (2) Fever: (3) Acute kidney injury: Plan Syncopal episode -Etiology unclear Cardiac echo, no acute findings Telemetry monitoring Serial EKGs, serial troponins. Orthostatic vitals IV fluids Fevers ? Etiology potentially related to ciprofloxacin ? Does have thrombocytopenia, transaminitis, could be tickborne illness such as tularemia, [place] spotted fever ? Order tick panel, tularemia panel ? Follow blood cultures -Follow urine cultures -follow respiratory viral panel -vancomycin -ciprofloxacon -doxyycline ANGELIC Is potentially related to Bactrim IV fluids Elevated lactic acid -IV fluid UTI ? Continue ciprofloxacin Peripelvic cyst New 4 cm probable right peripelvic cyst. ? With evidence of UTI ? Will do renal ultrasound ? Continue to monitor inflammatory markers -Renal ultrasound - US/US renal BI* [id number] IMPRESSION: 1. Right upper pole cyst could represent focally dilated calyx. 2. Bilateral renal calcification seen on CT are not well seen on ultrasound. Slightly enlarging currently 2.5 cm well-circumscribed left adrenal nodule. ? Will need to follow-up with hematology oncology as outpatient Given elevated D-dimer, will order CT angiogram the chest fule code lovenox Plan for today IV fluids, continue antibiotics, will monitor as patient needs to be afebrile before discharge, follow-up CT angiogram of the chest given elevated D-dimer, up out of bed, Attestations 2 Medical Necessity Statement*: Patient requires hospitalization for persistent fevers, Diagnoses Syncope R55 Fever R50.9 Acute kidney injury N17.9
[2024-03-31 16:00] VITALS: BP 165/81; PULSE 90; RESP 18; TEMP 37.2; O2SAT 97
--- NOTE | 2024-03-31 16:41 | PM.DCS ---
Discharge Providers Date of Admission: 03/31/24 14:37 Date of Discharge: March 31, 2024 Attending Provider at Admission: Arcenio Art MD Attending Provider at Discharge: Arcenio Art MD Primary Care Provider: WARD Calle Diagnoses at Discharge Discharge Diagnosis (1) Syncope: Status: Acute (2) Fever: Status: Acute (3) Acute kidney injury: Status: Acute Reason for Visit Reason for Visit: urg care referral, fever, weakness, poss. septic Hospital Course Hospital Course Devyn Nash is a 58 year old male with a past medical history of UTI, hypertension, history of nephrolithiasis, who presents to [facility] due to fatigue, malaise, fevers, chills, syncopal episode. Patient tells me that roughly about a week ago he started developing a rash on his left lower abdomen extending to the left flank, with a central induration, he thought it was a bug bite, he went to urgent care was prescribed Bactrim, he has been taking Bactrim for the last week. He tells me that over the week EKG to have fatigue, malaise, intermittent fevers, chills, continues to feel unwell. Denies any cough, no shortness of breath, no nasal congestion, no sore throat, no trouble swallowing no diarrhea, no constipation, no new rashes, he tells me actually the rash over his left abdomen improved with the Bactrim. Denies any dysuria, no hematuria, no neck pain, no neck stiffness, no episodes of confusion. He denies any tick bite but is unsure that the rash she had if it was a bug bite or potentially a tick bite. He tells me that due to persistent fevers, chills, he presented to urgent care today when he walked into urgent care, he felt weak and lightheaded and that the last thing he remembered. According to family members, he passed out, they had to help him up to wheelchair, denies any preceding chest pain, no palpitations, no calf pain, no calf swelling, no hemoptysis. During my examination, patient sitting up in a chair, denies feeling lightheaded, no dizziness, no chest pain For patient's syncopal episode, orthostatic vitals within normal limits, cardiac echo no acute findings, no acute events on telemetry monitoring, no significant delta troponin, continue to monitor, if any recurrent syncopal episodes please go to emergency room Elevated D-dimer, with syncopal episode, CT angiogram of the chest negative for PE With fevers, likely tickborne illness, with thrombocytopenia, transaminitis, ordered tick panel, tularemia panel, blood cultures so far no growth, remains afebrile for the last 12 hours, respiratory viral panel within normal limits. Will be discharged on 12 remaining days of Cipro and doxycycline. Please hydrate well, Tylenol for fevers if any persisting fevers go to the emergency room Acute kidney injury secondary dehydration, Bactrim toxicity, Bactrim has been stopped on discharge Concerns for UTI, discharged on Cipro Concerns for peripelvic cyst, renal ultrasound showed right upper pole cyst could represent focally dilated calyx, monitor Patient was found to have slightly enlarging 2.5 cm well-circumscribed left adrenal nodule, needs to follow-up with hematology oncology as outpatient for consideration of PET scan, or monitoring Physical Exam Const: COMMON NORMALS: no acute distress and patient oriented x3 Resp: COMMON NORMALS: normal respiratory effort, No retractions, No use of accessory muscles and clear to auscultation bilaterally AUSCULTATION: clear to auscultation bilaterally Cardio: COMMON NORMALS: regular rate, regular rhythm, S1 normal heart sound present and S2 normal heart sound present RATE: regular rate RHYTHM: regular rhythm HEART SOUNDS: S1 normal heart sound present and S2 normal heart sound present GI: COMMON NORMALS: Normal to inspection, nondistended, normoactive bowel sounds present and non-tender Extremity: COMMON NORMALS: no pedal edema Neuro: COMMON NORMALS: patient oriented x3 Psych: COMMON NORMALS: mental status grossly normal Discharge Data Studies Completed and Pending Completed Studies During Hospitalization Category Date Time Status CT abdomen pelvis w con* [id number] Stat Cat Scan 03/30/24 14:[address] angio chest PE protcl [id number] Stat Cat Scan 03/31/24 08:47 Completed XR chest 1V portable [id number] Stat Exams 03/30/24 12:00 Completed CV. echo complete* [id number] Stat Ultrasound 03/30/24 16:34 Completed US renal BI* [id number] Stat Ultrasound 03/30/24 16:41 Completed Pending at discharge Category Date Time Status Blood Culture Stat Lab 03/30/24 16:01 Results Complete Blood Count w/Auto AM LABS Lab 04/01/24 04:00 Ordered Complete Blood Count w/Auto AM LABS Lab 04/02/24 04:00 Ordered Comprehensive Metabolic Panel AM LABS Lab 04/01/24 04:00 Ordered Comprehensive Metabolic Panel AM LABS Lab 04/02/24 04:00 Ordered Francisella tularensis IgM/IgG Routine Lab 03/30/24 03:15 Received Lymes Ab IgG/IgM ref WB [Lymes Western Blot] Stat Lab 03/30/24 03:15 Received Streeter [RMSF Panel] Stat Lab 03/30/24 03:15 Received Sputum Culture and Gram Stain Stat Lab 03/30/24 19:17 Results Tick Panel Stat Lab 03/30/24 03:15 Received Urine Culture Stat Lab 03/30/24 12:41 Received Vancomycin Trough Timed Lab 04/01/24 22:00 Ordered Radiology Impressions Chest X-Ray 03/30/24 12:00 IMPRESSION: No acute findings. Abdomen/Pelvis CT 03/30/24 14:19 IMPRESSION: 1. Nonobstructing renal calculi 2. New 4 cm probable right peripelvic cyst. 3. Slightly enlarging currently 2.5 cm well-circumscribed left adrenal nodule. COMMENTS: Consistent with the [place]'s Incidental Findings Committee white paper (J Am Dequan Radiol 2018): Any incidental renal lesion less than 1 cm or classified as too small to characterize, or any incidental cystic renal lesion characterized as simple-appearing, is likely benign. No follow-up imaging is recommended for these lesions per consensus recommendations based on imaging criteria. Renal Ultrasound 03/30/24 16:41 IMPRESSION: 1. Right upper pole cyst could represent focally dilated calyx. 2. Bilateral renal calcification seen on CT are not well seen on ultrasound. Chest CTA 03/31/24 08:47 IMPRESSION: 1. Mild bibasilar atelectasis 2. Stable cardiomegaly 3. Hiatal hernia 4. Stable 3 cm left adrenal adenoma Laboratory Results WBC 3.31 10^3/uL (3.29-11.43) 03/31/24 03:15 RBC 4.54 10^6/uL (3.85-5.65) 03/31/24 03:15 Hgb 13.00 g/dL (11.27-16.99) 03/31/24 03:15 Hct 39.8 % (37-53) 03/31/24 03:15 MCV 87.7 fl (82-101) 03/31/24 03:15 MCH 28.6 pg (27-33) 03/31/24 03:15 MCHC 32.7 g/dL (30-55) 03/31/24 03:15 RDW 13.9 % (12.1-15.1) 03/31/24 03:15 Plt Count 166 10^3/cmm (157-399) 03/31/24 03:15 MPV 11.2 fL (7.4-10.4) H 03/31/24 03:15 Neut % (Auto) 75.3 % 03/31/24 03:15 Lymph % (Auto) 19.0 % 03/31/24 03:15 [place] % (Auto) 4.5 % 03/31/24 03:15 Eos % (Auto) 0.3 % 03/31/24 03:15 Baso % (Auto) 0.6 % 03/31/24 03:15 Neut # (Auto) 2.49 10^3/uL (1.8-7.7) 03/31/24 03:15 Lymph # (Auto) 0.6 10^3/uL (0.8-4.8) L 03/31/24 03:15 [place] # (Auto) 0.2 10^3/uL (0.2-0.9) 03/31/24 03:15 Eos # (Auto) 0.0 10^3/uL (0.0-0.8) 03/31/24 03:15 Baso # (Auto) 0.0 10^3/uL (0.0-0.1) 03/31/24 03:15 Nucleated RBC % (auto) 0 % 03/31/24 03:15 Nucleated RBCs # 0.0 /100WBC 03/31/24 03:15 ESR 16 mm/hr (0-10) H 03/30/24 12:20 D-Dimer 3.07 ug/mLFEU (0-0.59) H 03/30/24 12:20 Sodium 137 mmol/L (136-145) 03/31/24 03:15 Potassium 3.6 mmol/L (3.5-5.1) 03/31/24 03:15 Chloride 108 mmol/L (98-107) H 03/31/24 03:15 Carbon Dioxide 18 mmol/L (22-29) L 03/31/24 03:15 Anion Gap 14.6 (5-19) 03/31/24 03:15 BUN 14 mg/dL (6-20) 03/31/24 03:15 Creatinine 1.3 mg/dL (0.7-1.2) H 03/31/24 03:15 GFR Calculation 56.9 mL/min (90-130) L 03/31/24 03:15 Glucose 128 mg/dL (65-115) H 03/31/24 03:15 POC Glucose 164 mg/dL (70-110) H 03/30/24 12:55 Estimat Average Glucose 128 03/30/24 12:20 Hemoglobin A1c 6.1 % (4.0-6.0) H 03/30/24 12:20 Calculated Osmolality 286 mOsm/kg (285-295) 03/31/24 03:15 Lactic Acid 1.2 mmol/L (0.5-2.2) 03/31/24 03:15 Lactic Acid (Sepsis) 2.6 mmol/L (0.5-2.2) H 03/30/24 14:53 Calcium 7.8 mg/dL (8.5-10.5) L 03/31/24 03:15 Magnesium 1.9 mg/dL (1.7-2.3) 03/30/24 12:59 Total Bilirubin 0.4 mg/dL (0.15-1.2) 03/31/24 03:15 AST 38 U/L (0-40) 03/31/24 03:15 ALT 31 U/L (0-41) 03/31/24 03:15 Alkaline Phosphatase 78 U/L (40-130) 03/31/24 03:15 Creatine Kinase 95 U/L (39-308) 03/30/24 12:59 Troponin T Baseline 10 ng/L (0-15) 03/30/24 12:59 Troponin T 120 Minute 10.00 ng/L (0-15) 03/30/24 14:53 Delta Troponin T 0 ABS# (0-10) 03/30/24 14:53 C-Reactive Protein 142.2 mg/L (0.0-4.9) H 03/30/24 12:59 NT-Pro-B Natriuret Pep 50 pg/mL (0-125) 03/30/24 12:59 Total Protein 5.6 g/dL (6.6-8.7) L 03/31/24 03:15 Albumin 3.2 g/dL (3.5-5.2) L 03/31/24 03:15 Globulin 2.4 g/dL (1.3-4.6) 03/31/24 03:15 Triglycerides 130 mg/dL (0-150) 03/30/24 14:53 Cholesterol 130 mg/dL (0-200) 03/30/24 14:53 LDL Cholesterol, Calc 77 mg/dL (50-129) 03/30/24 14:53 HDL Cholesterol 27 mg/dL (60-100) L 03/30/24 14:53 LDL/HDL Ratio 2.85 RATIO (0.00-3.22) 03/30/24 14:53 Cholesterol/HDL Ratio 4.81 mg/dL (1.0-5.00) 03/30/24 14:53 TSH 0.90 uIU/mL (0.27-4.20) 03/30/24 14:53 Urine Color Yellow (Yellow) 03/30/24 12:41 Urine Appearance Clear (CLEAR) 03/30/24 12:41 Urine pH 5 (5-7) 03/30/24 12:41 Ur Specific [place] 1.020 (1.005-1.030) 03/30/24 12:41 Urine Protein Trace (Negative) 03/30/24 12:41 Urine Glucose (UA) Trace (Normal) H 03/30/24 12:41 Urine Ketones Negative (Negative) 03/30/24 12:41 Urine Blood 2+ (Negative) H 03/30/24 12:41 Urine Nitrate Negative (Negative) 03/30/24 12:41 Urine Bilirubin Neg (Negative) 03/30/24 12:41 Urine Urobilinogen 4 mg/dL (Negative) H 03/30/24 12:41 Ur Leukocyte Esterase Trace (Negative) H 03/30/24 12:41 Urine RBC 5-10 /hpf (0-2) H 03/30/24 12:41 Urine WBC 5-10 /hpf (0-5) H 03/30/24 12:41 Ur Squamous Epith Cells None /hpf (0-5) 03/30/24 12:41 Ur Transition Epith Cell Rare /hpf 03/30/24 12:41 Amorphous Sediment Not Reportable 03/30/24 12:41 Urine Bacteria 1+ /hpf (NONE) H 03/30/24 12:41 Urine Mucus Trace /hpf 03/30/24 12:41 Adenovirus (PCR) Not detected (NOT DETECT) 03/30/24 17:49 C. pneumoniae DNA (PCR) Not detected (NOT DETECT) 03/30/24 17:49 Coronavirus 229E (PCR) Not detected (NOT DETECT) 03/30/24 17:49 Hepatitis A IgM Ab Non-reactive (Nonreactive) 03/30/24 12:59 Hep Bs Antigen Non-reactive (Nonreactive) 03/30/24 12:59 Hep B Core IgM Ab Non-reactive (Nonreactive) 03/30/24 12:59 Hepatitis C Antibody Non-reactive (Nonreactive) 03/30/24 12:59 HIV 1&2 Ab & HIV 1 Ag Non-reactive (Non-Reactiv) 03/30/24 12:59 HIV 1&2 Antibody Non-reactive (Non-Reactiv) 03/30/24 12:59 Human Metapneumovir PCR Not detected (NOT DETECT) 03/30/24 17:49 Influenza A (H1) PCR Not detected (NOT DETECT) 03/30/24 17:49 Influ A (H1/09) PCR Not detected (NOT DETECT) 03/30/24 17:49 Influenza A (H3) PCR Not detected (NOT DETECT) 03/30/24 17:49 Influenza Type A (PCR) Not detected (NOT DETECT) 03/30/24 17:49 Influenza Type B (PCR) Not detected (NOT DETECT) 03/30/24 17:49 M. pneumoniae (PCR) Not detected (NOT DETECT) 03/30/24 17:49 Parainfluenza 1 (PCR) Not detected (NOT DETECT) 03/30/24 17:49 Parainfluenza 2 (PCR) Not detected (NOT DETECT) 03/30/24 17:49 Parainfluenza 3 (PCR) Not detected (NOT DETECT) 03/30/24 17:49 Parainfluenza 4 (PCR) Not detected (NOT DETECT) 03/30/24 17:49 RSV Type A (PCR) Not detected (NOT DETECT) 03/30/24 17:49 RSV Type B (PCR) Not detected (NOT DETECT) 03/30/24 17:49 Entero/Rhino (PCR) Not detected (NOT DETECT) 03/30/24 17:49 SARS-CoV-2 (PCR) Not detected (NOT DETECT) 03/30/24 17:49 Vitals Last Vital Signs Temp 98.6 F 03/31/24 11:53 Pulse 82 03/31/24 11:53 Resp 18 03/31/24 11:53 BP 130/72 03/31/24 11:53 Pulse Ox 97 03/31/24 11:53 O2 Del Method Room Air 03/31/24 11:53 Discharge Plan Discharge Patient Disposition: Home Condition: Stable Prescriptions: New doxycycline hyclate 100 mg tablet 100 mg PO BID 12 Days Qty: 24 0RF Cipro 500 mg tablet 500 mg PO BID 12 Days Qty: 24 0RF Continued hydroxyzine HCl 25 mg tablet 25 mg PO .HS PRN (Reason: nausea and vomiting) 30 Days Qty: 30 0RF Rx Instructions: Watch for daytime sleepiness tamsulosin [Flomax] 0.4 mg capsule 0.4 mg PO DAILY PRN (Reason: renal stone) 30 Days Qty: 30 0RF Held lisinopril 10 mg tablet 10 mg PO DAILY Qty: 90 2RF Hold Instructions: Resume on 04/02/24. Discontinued sulfamethoxazole-trimethoprim [Bactrim DS] 800-160 mg tablet 1 tab PO BID 10 Days Qty: 20 0RF Discharge Orders: Discharge Order (Routine); Ordered 03/31/24 Ordered By: Arcenio Art Referrals: MARQUISE Thibodeaux FNP [Primary Care Provider] - 1-3 days Rizwan Taveras MD [Hospitalist] - 1 month (adrenal nodule) Discharge Diet: Cardiac Discharge Activity: Resume usual activity Patient Instructions: Opioid Safety Activity Restrictions/Additional Instructions: - Please stay off work until at least Monday ? See primary care provider in 24 hours ? Please have your primary care provider monitor your platelet count, monitor your liver function Take antibiotics as prescribed If any recurrent fevers, chest pain, syncopal episode please come back to the emergency room Hydrate well, Tylenol for fevers Discharge Attestations Time Spent in Discharge Care*: greater than 30 min Quality Metrics Clinical Quality Measures [ No reported AMI, CVA or VTE this stay] Coding Level of Care Code 89753 Total time (in minutes) for Discharge: 45 Diagnoses Syncope R55 Fever R50.9 Acute kidney injury N17.9
[2024-03-31] MEDS: pantoprazole 40 mg SDV IVP (16:48)
[2024-03-31] MEDS: enoxaparin 40 mg/0.4 mL Syringe SUBCUT (16:48)
[2024-04-02 11:34] LABS: Lymes IGG WB <0.90 index
[2024-04-03 08:37] LABS: Leukemia Profile (BBPL) See Report
[2024-04-04 22:29] LABS: F.tularensis IgG AB Serum Negative (Negative); F.tularensis IgM AB Serum Negative (Negative)
[2024-04-05 17:04] LABS: Rocky Mountain IgG NOT DETECTED; Rocky Mountain IgM NOT DETECTED
== END 2024-03-31 18:27 | disposition home or self-care (01) ==
LOC: ER 16:13 → MEDSURG 18:32
PROVIDERS: Admitting Provider Family Medicine; Emergency Provider Emergency Medicine; PCP Nurse Practitioner Family; Visit Provider Family Medicine
DX: R55 Syncope and collapse (principal); R50.9 Fever, unspecified; N17.9 Acute kidney failure, unspecified; I10 Essential (primary) hypertension; N39.0 Urinary tract infection, site not specified; R74.02 Elevation of levels of lactic acid dehydrogenase [LDH]; N28.1 Cyst of kidney, acquired
CPT/HCPCS: 36415; 36416; 71045; 71275; 74177; 76770; 80053; 80061; 80074; 81001; 82550; 82962; 83036; 83605; 83735; 83880; 84443; 84484; 85025; 85378; 85651; 86140; 86160; 86617; 86618; 86666; 86668; 86757; 87040; 87070; 87086; 87205; 87486; 87581; 87633; 87806; 88184; 88185; 93005; 93306; 96365; 96367; 96372; 96375; 99285; G0378; J0744; J1650; J2470; J3370; J3490; J7030; Q9967

== ENCOUNTER 2024-04-01 08:48 | Emergency (ER) | payer OTHER, SELFPAY ==
[2024-04-01] VITALS (8 sets, daily range): BP systolic 135–149; BP diastolic 76–102; PULSE 67–75; RESP 16–18; TEMP 36.4; O2SAT 94–99; BMI 36.9
[2024-04-01 09:37] LABS: Hematocrit 40.4 % (37-53); Mean Corpuscular HGB Conc 34.4 g/dL (30-55); Mean Corpuscular Hemoglobin 28.6 pg (27-33); Mean Corpuscular Volume 83.1 fl (82-101); Mean Platelet Volume 8.9 fL (7.4-10.4); Platelet Count 121 10^3/cmm (157-399); Red Blood Count 4.86 10^6/uL (3.85-5.65); White Blood Count 3.78 10^3/uL (3.29-11.43)
--- NOTE | 2024-04-01 09:46 | ED_ITS ---
HPI - General Adult 2 General: Chief complaint: General Medical Stated complaint: temp dropping Time Seen by Provider: 04/01/24 08:57 History of Present Illness: 58-year-old man with a history of hypert ension who presents to the emergency room with a concern for low temperatures. Over the last several days he had had issues with temps being up at around 101. But then it would go low at home being around 95 his states. He was going to the clinic to be seen and almost passed out in the parking lot and so they came to the ER. He was admitted to observation. Battery of tests were run including a CTA of the chest which was negative for PE or other abnormalities. Respiratory panel was sent which was negative. Tick panel was sent and is still pending. He was placed on doxycycline. says this morning his temperature was low again. She checked her temperature which was normal with the same thermometer. So she brought him to the emergency room because she is worried he might pass out again. No cough. No abdominal pain. No vomiting. Review of Systems 2 Narrative: Constitutional symptoms: Negative except as documented in HPI. Skin symptoms: Negative except as documented in HPI. Eye symptoms: Negative except as documented in HPI. ENMT symptoms: Negative except as documented in HPI. Respiratory symptoms: Negative except as documented in HPI. Cardiovascular symptoms: Negative except as documented in HPI. Gastrointestinal symptoms: Negative except as documented in HPI. Genitourinary symptoms: Negative except as documented in HPI. Musculoskeletal symptoms: Negative except as documented in HPI. Neurologic symptoms: Negative except as documented in HPI. Psychiatric symptoms: Negative except as documented in HPI. Endocrine symptoms: Negative except as documented in HPI. PFSH ED 2 PFSH: Medical History Urinary tract infection Renal stone Hematuria Insomnia Vitamin D deficiency Primary hypertension Medication management Encounter for screening for cardiovascular disorders Prostate cancer screening Colon cancer screening Cardiac arrhythmia Family History Father CAD (coronary artery disease) Mother CAD (coronary artery disease) Social History Smoking and tobacco/nicotine status: unknown if used tobacco/nicotine Physical Exam 2 Narrative: EXAM NARRATIVE: General: Alert, no acute distress. Skin: Warm, dry. Head: Normocephalic, atraumatic. Neck: Supple, trachea midline. Eye: Extraocular movements are intact. Ears, nose, mouth and throat: mucosa moist. Cardiovascular: Regular, Normal peripheral perfusion. Respiratory: Lungs are clear to auscultation, respirations are non-labored, breath sounds are equal, Symmetrical chest wall expansion. Gastrointestinal: Soft, Nontender, Non distended Musculoskeletal: Normal ROM, no deformity. Neurological: Alert and oriented, No focal neurological deficit observed. Psychiatric: Cooperative, appropriate mood & affect. Course 2 Vital Signs: Vital signs: Vital Signs Temperature 97.6 F 04/01/24 11:55 Pulse Rate 71 04/01/24 13:05 Respiratory Rate 16 04/01/24 11:07 Blood Pressure 149/93 04/01/24 13:05 Pulse Oximetry 99 04/01/24 13:05 Oxygen Delivery Me thod Room Air 04/01/24 13:05 MDM - General Adult Medical Decision Making Medical decision making: Differential diagnosis including but not limited to and based on the above HPI, review of systems and physical exam: Patient presents with continued fluctuating temperatures. I am repeating basic lab work and a urinalysis. Orders placed to evaluate differential diagnosis based on the above differential, HPI and physical exam Lab Review: Laboratory results were reviewed and interpreted by myself the emergency room physician. Lab work remains fairly unremarkable. Liver enzymes have improved slightly. He still has some leukopenia. He is only been on doxycycline for couple days now. I think likely this is a tick illness. They have requested consultation with Dr. Art who had seen them in the hospital and I have consulted him and he is seeing them in the emergency room. I reviewed the patient's medical record. Consultation: I spoke with Dr. Art. He has seen the patient in the emergency room. He agrees with discharge and has discussed this with the patient. He still does have some low platelets and leukopenia. This is likely tick illness and he will improve on doxycycline. Reexamination: Patient remained stable. No increased work of breathing. No fevers while he has been here. No hypothermia while he is been here either. No altered mental status. No focal motor deficits. Assessment and plan: Likely tick illness, fevers. - Discharged home - Discussed plan with patient. Answered any questions. - Evaluation and treatment of this problem were appropriate in the emergency setting. Lab Data 04/01/24 09:25 04/01/24 09:25 Laboratory Results WBC 3.78 10^3/uL (3.29-11.43) 04/01/24 09:25 RBC 4.86 10^6/uL (3.85-5.65) 04/01/24 09:25 Hgb 13.90 g/dL (11.27-16.99) 04/01/24 09:25 Hct 40.4 % (37-53) 04/01/24 09:25 MCV 83.1 fl (82-101) 04/01/24 09:25 MCH 28.6 pg (27-33) 04/01/24 09:25 MCHC 34.4 g/dL (30-55) 04/01/24 09:25 RDW 14.0 % (12.1-15.1) 04/01/24 09:25 Plt Count 121 10^3/cmm (157-399) L 04/01/24 09:25 MPV 8.9 fL (7.4-10.4) 04/01/24 09:25 Lymph % (Auto) Not Reportable 04/01/24 09:25 [place] % (Auto) Not Reportable 04/01/24 09:25 Lymph # (Auto) Not Reportable 04/01/24 09:25 [place] # (Auto) Not Reportable 04/01/24 09:25 Total Counted 100 (0-100) 04/01/24 09:25 Atypical Lymphs % 7.0 % (0-5) H 04/01/24 09:25 Absolute Neutrophils 2.4 10^3/cmm (1.4-6.5) 04/01/24 09:25 Segmented Neutrophils 41 % 04/01/24 09:25 Abs Segm Neuts (Man) 1.5 10/cmm (1.6-7.1) L 04/01/24 09:25 Band Neutrophils 22.0 % 04/01/24 09:25 Abs Band Neuts (Man) 0.8 10^3/cmm (0.0-1.2) 04/01/24 09:25 Absolute Lymphocytes 1.3 10^3/cmm (1.2-3.4) 04/01/24 09:25 Lymphocytes (Manual) 27 % 04/01/24 09:25 Monocytes (Manual) 3.0 % 04/01/24 09:25 Absolute Monocytes 0.1 10^3/cmm (0.1-0.6) 04/01/24 09:25 Eosinophils (Manual) 0 % 04/01/24 09:25 Absolute Eosinophils 0.0 10^3/cmm (0.0-0.7) 04/01/24 09:25 Basophils (Manual) 0.0 % 04/01/24 09:25 Absolute Basophils 0.0 10^3/cmm (0.0-0.2) 04/01/24 09:25 Platelet Estimate Decreased (Normal) 04/01/24 09:25 Sodium 138 mmol/L (136-145) 04/01/24 09:25 Potassium 3.7 mmol/L (3.5-5.1) 04/01/24 09:25 Chloride 110 mmol/L (98-107) H 04/01/24 09:25 Carbon Dioxide 19 mmol/L (22-29) L 04/01/24 09:25 Anion Gap 12.7 (5-19) 04/01/24 09:25 BUN 11 mg/dL (6-20) 04/01/24 09:25 Creatinine 1.0 mg/dL (0.7-1.2) 04/01/24 09:25 GFR Calculation 77.0 mL/min (90-130) L 04/01/24 09:25 Glucose 112 mg/dL (65-115) 04/01/24 09:25 Calculated Osmolality 286 mOsm/kg (285-295) 04/01/24 09:25 Lactic Acid 0.8 mmol/L (0.5-2.2) 04/01/24 09:25 Calcium 8.5 mg/dL (8.5-10.5) 04/01/24 09:25 Total Bilirubin 0.4 mg/dL (0.15-1.2) 04/01/24 09:25 AST 22 U/L (0-40) 04/01/24 09:25 ALT 30 U/L (0-41) 04/01/24 09:25 Alkaline Phosphatase 84 U/L (40-130) 04/01/24 09:25 C-Reactive Protein 42.5 mg/L (0.0-4.9) H 04/01/24 09:25 Total Protein 6.3 g/dL (6.6-8.7) L 04/01/24 09:25 Albumin 3.5 g/dL (3.5-5.2) 04/01/24 09:25 Globulin 2.8 g/dL (1.3-4.6) 04/01/24 09:25 Urine Color Yellow (Yellow) 04/01/24 10:20 Urine Appearance Clear (CLEAR) 04/01/24 10:20 Urine pH 5 (5-7) 04/01/24 10:20 Ur Specific [place] 1.010 (1.005-1.030) 04/01/24 10:20 Urine Protein Neg (Negative) 04/01/24 10:20 Urine Glucose (UA) Norm (Normal) 04/01/24 10:20 Urine Ketones Negative (Negative) 04/01/24 10:20 Urine Blood Neg (Negative) 04/01/24 10:20 Urine Nitrate Negative (Negative) 04/01/24 10:20 Urine Bilirubin Neg (Negative) 04/01/24 10:20 Urine Urobilinogen Norm mg/dL (Negative) 04/01/24 10:20 Ur Leukocyte Esterase Negative (Negative) 04/01/24 10:20 Urine RBC None /hpf (0-2) 04/01/24 10:20 Urine WBC 0-4 /hpf (0-5) H 04/01/24 10:20 Ur Squamous Epith Cells 0-4 /hpf (0-5) H 04/01/24 10:20 Amorphous Sediment Not Reportable 04/01/24 10:20 Urine Bacteria None /hpf (NONE) 04/01/24 10:20 No radiology studies performed this visit Discharge Plan Discharge Patient Disposition: Home Clinical Impression: Fever Condition: Stable Prescriptions: No Action lisinopril 10 mg tablet 10 mg PO DAILY Qty: 90 2RF Hold Instructions: Resume on 04/02/24. sulfamethoxazole-trimethoprim 800-160 mg tablet 1 tab PO BID doxycycline hyclate 100 mg tablet 100 mg PO BID 12 Days Qty: 24 0RF ciprofloxacin HCl [Cipro] 500 mg tablet 500 mg PO BID 12 Days Qty: 24 0RF Discharge Orders: Discharge ED (Routine); Ordered 04/01/24 Ordered By: Linda Campos Referrals: Gross,DJ, LIQU[employer]KER [Primary Care Provider] - Discharge Diet: Usual diet Discharge Activity: Increase activity as tolerated Patient Instructions: Tick Bite (ED) Activity Restrictions/Additional Instructions: Please continue antibiotics as previously instructed. Follow-up with your primary as instructed. Thank you for choosing [facility] for your healthcare needs today. Please realize this is an emergency room and that we are providing you with a medical screening exam and this may not be complete and all inclusive of all the testing and or work up that you may need to determine your ailment or severity of your illness. You have been screened and evaluated and felt safe for discharge. Health conditions do change or evolve sometimes and as such it is important that you follow up with your Primary Doctor to be re checked, 3-5 days is a general good time frame for follow up. You are always welcome to return to the ED for re assessment if your symptoms are worsening or you have new concerns Coding Level of Care Code ED Paralegal Supervisor for Sixto Freeman
[2024-04-01 09:54] LABS: Alanine Aminotransferase 30 U/L (0-41); Albumin Level 3.5 g/dL (3.5-5.2); Alkaline Phosphatase 84 U/L (40-130); Anion Gap 12.7 (5-19); Aspartate Amino Transferase 22 U/L (0-40); Blood Urea Nitrogen 11 mg/dL (6-20); C Reactive Protein 42.5 mg/L (0.0-4.9); Calcium 8.5 mg/dL (8.5-10.5); Carbon Dioxide 19 mmol/L (22-29); Chloride 110 mmol/L (98-107); Creatinine Clr Calc Pharmacy 101.1899; Globulin 2.8 g/dL (1.3-4.6); Glucose 112 mg/dL (65-115); Osmolality Calculated 286 mOsm/kg (285-295); Potassium 3.7 mmol/L (3.5-5.1); Sodium 138 mmol/L (136-145); Total Bilirubin 0.4 mg/dL (0.15-1.2); Total Protein 6.3 g/dL (6.6-8.7)
[2024-04-01 09:55] LABS: Lactic Sepsis W/Reflex 0.8 mmol/L (0.5-2.2)
[2024-04-01 10:16] LABS: Absolute Segmented Neutrophil 1.5 10/cmm (1.6-7.1); Band Neutrophils Absolute 0.8 10^3/cmm (0.0-1.2); Eosinophils 0 %; Lymphocytes 27 %; Monocytes Absolute 0.1 10^3/cmm (0.1-0.6); Segmented Neutrophils 41 %; Slide Review Slide Review Perform; Total Cells Counted 100 (0-100)
[2024-04-01 10:17] LABS: Absolute Neutrophil 2.4 10^3/cmm (1.4-6.5); Lymphocytes Absolute 1.3 10^3/cmm (1.2-3.4); Platelet Estimate Decreased (Normal)
[2024-04-01 11:13] LABS: Add Urine Culture? No; Bilirubin Urine Neg (Negative); Blood Urine Neg (Negative); Glucose Urine UA Norm (Normal); Ketones Urine Negative (Negative); Leukocyte Esterase Urine Negative (Negative); Nitrate Urine Negative (Negative); Protein Urine Neg (Negative); Squamous Epithelial Cell Urine 0-4 /hpf (0-5); Urine Appearance Clear (CLEAR); Urine Color Yellow (Yellow); Urobilinogen Urine Norm (Negative); WBC Urine 0-4 /hpf (0-5); pH Urine 5 (5-7)
--- NOTE | 2024-04-01 13:22 | P.CONIM_ITS ---
Providers/Reason For Consult 2 Consulting Physician/Specialty*: er Reason for Consult*: fevers Primary Care Provider: WARD Calle History of Present Illness History of Present Illness Devyn Nash is a 58 year old male who I discharged from the hospital yesterday, for fevers, tickborne illness. Comes back to the hospital due to persistent fevers, concerns for hypothermia. Continues to have Crum fatigue, malaise. He tells me that he had a fever last night, he took Tylenol for it, they rechecked his temperature and it was 95, reported feeling cool, clammy, fatigue, malaise. He continues to take Cipro and Flagyl. No cough, no shortness of breath, no chest pain, neck pain, no stiffness, no lightheadedness, no dizziness, no change in his mentation, no diarrhea, no abdominal pain, no dysuria, no new rashes. No sore throat, no trouble swallowing, no known exposures, Review of Systems 2 Const: Reports: fever(s), chills, fatigue and malaise Eyes: Denies: change in vision Card: Denies: chest pain Resp: Denies: dyspnea GI: Denies: abdominal pain : Denies: flank pain Musc: Denies: neck pain or back pain Neuro: Denies: headache(s), numbness in extremities, weakness in extremities, difficulty walking, frequent falls, dizziness or vertigo Endo: Denies: polyuria Chas/Lymph: Denies: easy bruising Medications/Allergies Home Medications Medication Instructions Recorded Confirmed Last Taken Type lisinopril 10 mg tablet 10 mg PO DAILY #90 tabs 07/13/23 04/01/24 03/31/24 Rx ciprofloxacin HCl 500 mg tablet 500 mg PO BID 12 days #24 tabs 03/31/24 04/01/24 03/31/24 Rx (Cipro) doxycycline hyclate 100 mg tablet 100 mg PO BID 12 days #24 tabs 03/31/24 04/01/24 03/31/24 Rx sulfamethoxazole 800 1 tab PO BID 04/01/24 04/01/24 Unknown History mg-trimethoprim 160 mg tablet Allergies Allergy/AdvReac Type Severity Reaction Status Date / Time No Known Allergies Allergy Verified 03/23/24 09:59 PFSH Acute 2 PFSH: Medical History Urinary tract infection Renal stone Hematuria Insomnia Vitamin D deficiency Primary hypertension Medication management Encounter for screening for cardiovascular disorders Prostate cancer screening Colon cancer screening Cardiac arrhythmia Family History Father CAD (coronary artery disease) Mother CAD (coronary artery disease) Social History Smoking and tobacco/nicotine status: unknown if used tobacco/nicotine Vitals/I&O/Wt Last Vital Signs Temp 97.6 F 04/01/24 11:55 Pulse 71 04/01/24 13:05 Resp 16 04/01/24 11:07 BP 149/93 04/01/24 13:05 Pulse Ox 99 04/01/24 13:05 O2 Del Method Room Air 04/01/24 13:05 Weight last 48 hrs Weight 113.398 kg Physical Exam 2 Const: COMMON NORMALS: no acute distress and patient oriented x3 HENMT: COMMON NORMALS: normocephalic HEAD & SCALP: normocephalic Eye: COMMON NORMALS: Equal, round and reactive pupils present PUPIL: Yes Equal, round and reactive pupils present Resp: COMMON NORMALS: normal respiratory effort, No retractions, No use of accessory muscles and clear to auscultation bilaterally AUSCULTATION: clear to auscultation bilaterally Cardio: COMMON NORMALS: regular rate, regular rhythm, S1 normal heart sound present and S2 normal heart sound present RATE: regular rate RHYTHM: r egular rhythm HEART SOUNDS: S1 normal heart sound present and S2 normal heart sound present GI: COMMON NORMALS: Normal to inspection, nondistended, normoactive bowel sounds present and non-tender Extremity: COMMON NORMALS: no calf tenderness and no pedal edema Neuro: COMMON NORMALS: patient oriented x3, CN's II-XII intact bilaterally and moves all extremities Psych: COMMON NORMALS: mental status grossly normal Skin: NARRATIVE SKIN EXAM: rash improved Data 04/01/24 09:25 04/01/24 09:25 A&P Assessment and plan (1) Syncope: (2) Fever: (3) Acute kidney injury: Plan Fevers ? Etiology potentially related to tickborne illness ? Does have thrombocytopenia, transaminitis, could be tickborne illness such as tularemia, Libby spotted fever ? Order tick panel, tularemia panel still pending ? Follow blood cultures, so far negative -Follow urine cultures so far negative -Workup in the emergency room no significant leukocytosis, platelet count is 121 with atypical lymphocytes, CRP trending downwards, LFTs have normalized UA within normal limits, he is nontoxic-appearing, normotensive, on room air, alert and awake, following all commands, respiratory rate 16, pulse is 71 ? Discussed with family that I still believe that this is tickborne illness we will just have to give it time with Doxy and Cipro, start probiotic ? Continue his home lisinopril stop Bactrim -If he has persistent high-grade fevers not improving with Tylenol and Motrin, to emergency room or if he is toxic appearing, low blood pressures, low pulse ox, elevated heart rate bring him back to the hospital for evaluation ? I have ordered a EBV panel, malaria panel, and dengue fever viral panel in the emergency room ? Follow-up with MARQUISE almonte on Monday to repeat CBC monitor thrombocytopenia, certainly ITP could be an etiology -ciprofloxacon -doxyycline Consult Attestations 2 Medical Necessity Statement: Patient will be discharged in the emergency room Diagnoses Syncope R55 Fever R50.9 Acute kidney injury N17.9
[2024-04-02 13:00] LABS: EBV IGM TEST <36.00 U/mL; EBV Nuclear AG <18.00 U/mL
[2024-04-02 15:19] LABS: EBV Viral Capsid AB IGM <36.00 U/mL
== END 2024-04-01 13:51 | disposition home or self-care (01) ==
PROVIDERS: Family Medicine; Emergency Provider Emergency Medicine; PCP Nurse Practitioner Family
DX: R50.9 Fever, unspecified (principal); D72.819 Decreased white blood cell count, unspecified; I10 Essential (primary) hypertension
CPT/HCPCS: 36415; 80053; 81001; 83605; 85007; 85025; 86140; 86664; 86665; 87207; 99283

== ENCOUNTER → 2024-04-03 11:55 | Outpatient (BNVA) | payer OTHER, SELFPAY | PROVIDERS: PCP Nurse Practitioner Family; Visit Provider Nurse Practitioner Family | DX: I10 Essential (primary) hypertension (principal) | CPT/HCPCS: 80053; 85007; 85025 ==

== ENCOUNTER 2024-04-05 15:31 | Emergency (ER) | payer OTHER, SELFPAY ==
[2024-04-05 15:35] VITALS: BP 152/83; PULSE 89; RESP 16; TEMP 36.8; O2SAT 97
--- NOTE | 2024-04-05 15:57 | W.ED.RECABL ---
HPI - Recheck/Abnormal Lab/Rx General: Chief Complaint: Recheck/Abnormal Lab/Rx Stated Complaint: sent by gross, liver enzymes tripled Time Seen by Provider: 04/05/24 15:49 History of Present Illness: 58-year-old male directed to the emergency room by nurse practitioner for elevated transaminases. Patient was recently evaluated for tickborne illness is currently on doxycycline tick panel is still pending he had hepatitis panel that was negative. His transaminases are elevated in the presence of a normal alk phos and a normal T. bili. He is not on any hepatotoxic drugs. 6 days ago he had a normal CT abdomen and pelvis Review of Systems Const: Denies: fever(s) or chills Card: Denies: chest pain Resp: Denies: dyspnea GI: Denies: abdominal pain : Denies: dysuria, urinary frequency or urinary urgency Musc: Denies: neck pain or back pain Skin/Breast: Reports: rash (Resolving) PFSH ED PFSH: Medical History Urinary tract infection Renal stone Hematuria Insomnia Vitamin D deficiency Primary hypertension Medication management Encounter for screening for cardiovascular disorders Prostate cancer screening Colon cancer screening Cardiac arrhythmia Family History Father CAD (coronary artery disease) Mother CAD (coronary artery disease) Social History Smoking and tobacco/nicotine status: unknown if used tobacco/nicotine Physical Exam Const: COMMON NORMALS: no acute distress GENERAL APPEARANCE: cooperative and comfortable ORIENTATION/CONSCIOUSNESS: Yes awake, Yes oriented to person, Yes oriented to place and Yes oriented to time HENMT: COMMON NORMALS: normocephalic, atraumatic and hearing grossly normal bilaterally HEAD & SCALP: normocephalic and atraumatic Resp: COMMON NORMALS: normal respiratory effort, No retractions, No use of accessory muscles and clear to auscultation bilaterally AUSCULTATION: clear to auscultation bilaterally Cardio: COMMON NORMALS: regular rate, regular rhythm and No murmurs present (Cardio) RATE: regular rate RHYTHM: regular rhythm GI: COMMON NORMALS: Soft to palpation and No hepatosplenomegaly present AUSCULTATION: Yes normoactive bowel sounds PALPATION: Yes Soft to palpation, No Tenderness to palpation present (GI), No Guarding due to palpation present (GI) and Yes No hepatosplenomegaly present Extremity: COMMON NORMALS: normal to inspection, capillary refill normal, no clubbing, cyanosis or edema, no calf tenderness and no pedal edema Neuro: SENSORIUM/ORIENTATION: Yes oriented to person, Yes oriented to place and Yes oriented to time Skin: OTHER: Rash on the left flank is improved. Patient showed me a picture from when this initially started was significantly more noticeable. Still present at this time but markedly improved slightly raised petechial-like rash no vesicles no skin induration Course Vital Signs: Vital signs: Vital Signs Temperature 98.2 F 04/05/24 15:35 Pulse Rate 82 04/05/24 16:07 Respiratory Rate 16 04/05/24 15:35 Blood Pressure 126/85 04/05/24 16:07 Pulse Oximetry 93 04/05/24 16:07 Oxygen Delivery Me thod Room Air 04/05/24 15:35 MDM - Recheck/Abnormal Lab/Rx Medical Decision Making Transaminitis already improving. Ammonia level normal. Given his history of tickborne illness with a rash suspect he does have tickborne illnesses panel is still pending is typical for the transaminitis in case like it is already improving can just be monitored recheck in a week. No emergent condition present Lab Data 04/05/24 16:08 04/05/24 16:08 Laboratory Results Sodium 141 mmol/L (136-145) 04/05/24 16:08 Potassium 3.6 mmol/L (3.5-5.1) 04/05/24 16:08 Chloride 106 mmol/L (98-107) 04/05/24 16:08 Carbon Dioxide 26 mmol/L (22-29) 04/05/24 16:08 Anion Gap 12.6 (5-19) 04/05/24 16:08 BUN 15 mg/dL (6-20) 04/05/24 16:08 Creatinine 1.2 mg/dL (0.7-1.2) 04/05/24 16:08 GFR Calculation 62.4 mL/min (90-130) L 04/05/24 16:08 Glucose 116 mg/dL (65-115) H 04/05/24 16:08 Calculated Osmolality 294 mOsm/kg (285-295) 04/05/24 16:08 Calcium 8.8 mg/dL (8.5-10.5) 04/05/24 16:08 Total Bilirubin 0.4 mg/dL (0.15-1.2) 04/05/24 16:08 AST 42 U/L (0-40) H 04/05/24 16:08 ALT 106 U/L (0-41) H 04/05/24 16:08 Alkaline Phosphatase 87 U/L (40-130) 04/05/24 16:08 Ammonia 22 umol/L (16-60) 04/05/24 16:08 Total Protein 6.4 g/dL (6.6-8.7) L 04/05/24 16:08 Albumin 3.8 g/dL (3.5-5.2) 04/05/24 16:08 Globulin 2.6 g/dL (1.3-4.6) 04/05/24 16:08 No radiology studies performed this visit Discharge Plan Discharge Patient Disposition: Home Clinical Impression: Transaminitis, Tick-borne disease Condition: Stable Prescriptions: No Action lisinopril 10 mg tablet 10 mg PO DAILY Qty: 90 2RF Hold Instructions: Resume on 04/02/24. sulfamethoxazole-trimethoprim 800-160 mg tablet 1 tab PO BID doxycycline hyclate 100 mg tablet 100 mg PO BID 12 Days Qty: 24 0RF ciprofloxacin HCl [Cipro] 500 mg tablet 500 mg PO BID 12 Days Qty: 24 0RF Discharge Orders: Discharge ED (Routine); Ordered 04/05/24 Ordered By: Zach Goel Referrals: MARQUISE Thibodeaux, FAMILY MEDICINE RESIDENT [Primary Care Provider] - Discharge Diet: Usual diet Discharge Activity: Increase activity as tolerated Patient Instructions: Opioid Safety, Pain Management Activity Restrictions/Additional Instructions: Thank you for choosing [facility] for your healthcare needs today. It is very important that you follow up as instructed or that you return to the Emergency Department should you have concerns or if your condition changes or worsens in any way. You are seen in the emergency room with report of elevated liver enzymes that were done yesterday. They are already decreasing. You can follow-up with your primary care doctor to follow-up on them further. They can also follow-up with you on the tickborne illness. This is likely what is causing elevation in liver enzymes. Coding Level of Care Code ED [employer] Supervisor for Chg Lydia
[2024-04-05 16:07] VITALS: BP 126/85; PULSE 82; O2SAT 93
--- NOTE | 2024-04-05 16:09 | ECG_ITS ---
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 Measurements Intervals [place] Rate: 81 P: 25 [place]: 165 QRS: -13 QRSD: 102 T: 11 QT: 366 QTc: 425 Interpretive Statements SINUS RHYTHM MODERATE VOLTAGE CRITERIA FOR LVH, CONSIDER NORMAL VARIANT [MEETS CRITERIA IN ONE OF: R(aVL), S(V1), R(V5), R(V5/V6)+S(V1)] Compared to ECG 03/30/2024 17:02:32 No significant changes Electronically Signed On 04-05-2024 19:58:44 CDT by Cecelia Baker M.D. [id number]
[2024-04-05 16:17] LABS: Hematocrit 39.3 % (37-53); Mean Corpuscular HGB Conc 33.8 g/dL (30-55); Mean Corpuscular Hemoglobin 28.5 pg (27-33); Mean Corpuscular Volume 84.3 fl (82-101); Mean Platelet Volume 8.5 fL (7.4-10.4); Platelet Count 271 10^3/cmm (157-399); Red Blood Count 4.66 10^6/uL (3.85-5.65); Red Cell Distribution Width 14.4 % (12.1-15.1); White Blood Count 10.56 10^3/uL (3.29-11.43)
[2024-04-05 16:39] LABS: Ammonia 22 umol/L (16-60)
[2024-04-05 16:44] LABS: Alanine Aminotransferase 106 U/L (0-41); Albumin Level 3.8 g/dL (3.5-5.2); Alkaline Phosphatase 87 U/L (40-130); Anion Gap 12.6 (5-19); Aspartate Amino Transferase 42 U/L (0-40); Blood Urea Nitrogen 15 mg/dL (6-20); Calcium 8.8 mg/dL (8.5-10.5); Carbon Dioxide 26 mmol/L (22-29); Chloride 106 mmol/L (98-107); Creatinine Clr Calc Pharmacy 84.3249; Globulin 2.6 g/dL (1.3-4.6); Glomerular Filtration Rate 62.4 mL/min (90-130); Glucose 116 mg/dL (65-115); Osmolality Calculated 294 mOsm/kg (285-295); Potassium 3.6 mmol/L (3.5-5.1); Sodium 141 mmol/L (136-145); Total Bilirubin 0.4 mg/dL (0.15-1.2); Total Protein 6.4 g/dL (6.6-8.7)
[2024-04-05 16:58] VITALS: BP 129/74; PULSE 82; O2SAT 93
[2024-04-05 16:58] LABS: Absolute Segmented Neutrophil 3.5 10/cmm (1.6-7.1); Eosinophils 0 %; Lymphocytes 33 %; Lymphocytes Absolute 7.1 10^3/cmm (1.2-3.4); Segmented Neutrophils 33 %; Slide Review Slide Review Perform; Total Cells Counted 100 (0-100)
[2024-04-05 16:59] LABS: Absolute Neutrophil 3.5 10^3/cmm (1.4-6.5); Platelet Estimate Normal (Normal)
== END 2024-04-05 16:58 | disposition home or self-care (01) ==
PROVIDERS: Emergency Provider Family Medicine; PCP Nurse Practitioner Family
DX: R74.01 Elevation of levels of liver transaminase levels (principal); A93.8 Other specified arthropod-borne viral fevers; I10 Essential (primary) hypertension
CPT/HCPCS: 80053; 82140; 85007; 85025; 93005; 99284

== ENCOUNTER 2024-05-30 06:00 | Outpatient (CLI) | payer OTHER, SELFPAY | END 2024-05-30 06:01 | disposition home or self-care (01) | LOC: LAB 06-17 10:47 | PROVIDERS: PCP Nurse Practitioner Family; Visit Provider Nurse Practitioner Family | DX: D35.02 Benign neoplasm of left adrenal gland (principal); G47.30 Sleep apnea, unspecified; Z79.899 Other long term (current) drug therapy; E27.8 Other specified disorders of adrenal gland; I10 Essential (primary) hypertension | CPT/HCPCS: 80053; 81003; 82088; 82306; 82533; 84402; 84403; 84439; 84443; 85025 ==

== ENCOUNTER 2024-07-30 13:27 | Outpatient (CLI) | payer OTHER, SELFPAY | END 2024-07-30 13:28 | disposition home or self-care (01) | LOC: SLEEP 13:28 | PROVIDERS: PCP Nurse Practitioner Family; Visit Provider Nurse Practitioner Family | DX: G47.33 Obstructive sleep apnea (adult) (pediatric) (principal) | CPT/HCPCS: G0399 ==

== ENCOUNTER 2024-08-30 11:58 | Outpatient (CLI) | payer OTHER, SELFPAY ==
[2024-08-30] MEDS: iohexol 350 mg/mL 500 mL Btl (per mL) IV (12:24)
--- NOTE | 2024-08-30 12:30 | CT_ITS ---
WS: [id number] CT ABDOMEN AND PELVIS WITH AND WITHOUT CONTRAST HISTORY: D35.02 - Benign neoplasm of left adrenal gland TECHNIQUE: Unenhanced 2 mm axial imaging first performed through the abdomen. Post contrast imaging t hrough the abdomen and pelvis. Oral contrast has not been provided. Sagittal and coronal reformats a re submitted. All CT scans at [facility] use at least one of these dose optimization techniqu es: automated exposure control; mA and/or kV adjustment per patient size (includes targeted exams whe re dose is matched to clinical indication); or iterative reconstruction. CONTRAST: Omnipaque 350; 95 mL IV. DLP: 3097.19 mGy.cm COMPARISON: 03/30/2024, 05/07/2017 Lung bases are clear. Normal size heart. LEFT adrenal gland: Long-term stability of a well-circumscribed low-attenuation mass measuring 2.1 x 2.4 cm. Hounsfield units are 4 on the noncontrast study. Absolute washout greater than 60. This is co nsistent with an adenoma. RIGHT adrenal gland is normal. Normal liver and spleen. Slightly contracted gallbladder. Normal pancreas. Central RIGHT parapelvic c ysts and a few nonobstructing calcifications. No calyceal dilatation. Scattered smaller cortical cyst LEFT kidney. No obstruction or mass. Mild atherosclerosis aorta. Stomach is well distended with fluid. No small bowel or colon obstruction. Normal appendix. Normal ur inary bladder. No ascites or adenopathy. Small umbilical hernia. CT/CT abdomen pelvis wo/w [id number] IMPRESSION: 1. Benign LEFT adrenal gland mass. Consistent with a benign adenoma. Stable si ze since 2016. 2. RIGHT renal parapelvic cysts. 3. No ascites or adenopathy.
== END 2024-08-30 11:59 | disposition home or self-care (01) ==
LOC: RAD 12:01
PROVIDERS: PCP Nurse Practitioner Family; Visit Provider Nurse Practitioner Family
DX: D35.02 Benign neoplasm of left adrenal gland (principal); N28.1 Cyst of kidney, acquired; K42.9 Umbilical hernia without obstruction or gangrene
CPT/HCPCS: 74178

== ENCOUNTER → 2025-08-14 09:06 | Outpatient (BNVA) | payer OTHER, SELFPAY | PROVIDERS: PCP Nurse Practitioner Family; Visit Provider Nurse Practitioner Family | DX: I10 Essential (primary) hypertension (principal); E55.9 Vitamin D deficiency, unspecified; Z79.899 Other long term (current) drug therapy | CPT/HCPCS: 80053; 80061; 81003; 82306; 83036; 84443; 85025; G0103 ==